=== PATIENT | male | born 1950 | race Caucasian/White ===

== ENCOUNTER 2019-07-12 00:32 | Day surgery (SDC) | payer MEDICARE, SELFPAY ==
[2019-07-04 14:55] VITALS: BMI 23.9
--- NOTE | 2019-07-11 17:11 | WPDANESEPP ---
Swethas - Evcatherine Pre Procedure Procedure: Operation Date: 07/12/19 07:30 Proposed Procedures p Colonoscopy - Jerson GirishCarlita Driscoll DO Date/Time: 07/11/19 17:11 Pre Op Diagnosis: colitis Patient Data Age: 69 Gender: M Height: 6 ft Weight: 80 kg Allergies Allergy/AdvReac Type Severity Reaction Status Date / Time No Known Allergies Allergy Unknown Verified 07/04/19 15:01 Home Medications Medication Instructions Recorded Confirmed Type finasteride 5 mg tablet 5 mg PO DAILY 04/24/19 07/04/19 History nebivolol 5 mg tablet 2.5 mg PO DAILY 04/24/19 07/04/19 History omeprazole 40 mg capsule,delayed 40 mg PO BID 04/24/19 07/04/19 History release Patient hx anesthesia problems: none Family hx anesthesia problems: none PMFSH Past Medical History Medical History Acute diverticulitis BPH without obstruction/lower urinary tract symptoms Colitis Colon polyps Essential (primary) hypertension Gastroesophageal reflux disease LLQ abdominal pain (05/14/19) Loose stools Male erectile dysfunction, unspecified Nocturia Surgical History Surgical History History of cholecystectomy Family History Family History Father Diabetes mellitus, Onset Age: 84 Cerebrovascular accident, Onset Age: 84 Family history of malignant neoplasm of esophagus Mother Hypertension Patient's mother is in good health Family history of arthritis Exam Day of Procedure 07/11/19 17:11
[2019-07-12 06:10] VITALS: BP 130/104; PULSE 92; RESP 18; TEMP 36.6; O2SAT 96
[2019-07-12] MEDS: LACTATED RINGERS 1,000 ML 150 ML IV CONT (06:48)
--- NOTE | 2019-07-12 06:56 | P.PNAN_ITS ---
Anes - Eval Final PreProcedure Day of Procedure 07/12/19 06:56 Patient weight: normal Heart: regular rate and rhythm Lungs: clear to auscultation Airway: Mallampati scale class II Neurological: alert and oriented Last oral intake: >/= 8 hours ASA classification: II Emergent: no Anesthetic plan: proceed Anesthesia type and monitoring: general GIVS and standard monitoring Informed Consent: The patient's anesthetic plan and its attendant risks and b enefits were discussed with the patient/family/POA. Questions were solicited and answers provided to the satisfaction of the patient/family/POA.
--- NOTE | 2019-07-12 07:18 | PM.IMHP ---
H&P: HPI History of Present Illness Chief complaint: colitis Narrative: Gilberto Lloyd is a 69 year old male presents for colonoscopy. Patient was found to have descending colitis on CT imaging 05/2019. He had bilateral lower abdominal cramping and frequent stooling for 1 day prior to imaging. He denies any sick contacts, fevers, chills with this episode. He had similar episode he said 1 month prior. He is back to baseline with his bowel habits. His last colonoscopy was in [address] Driscoll and had hyperplastic polyps. He has hx of GERD and is well controlled on omeprazole 40 mg daily. He denies any nausea, vomiting, dysphagia, or odynophagia. Denies abnormal weight loss, fever or chills. Family hx of esophageal cancer Had aspiration pneumonia after last colonoscopy Review of Systems Review of Systems: All systems reviewed & are unremarkable except as noted in HPI and below PMFSH Family History Family History Father Diabetes mellitus, Onset Age: 84 Cerebrovascular accident, Onset Age: 84 Family history of malignant neoplasm of esophagus Mother Hypertension Patient's mother is in good health Family history of arthritis Social History Social History (Updated 07/12/19 @ 07:19 by Maureen Carvalho, ORTHODONTIC BAND MAKER) Smoking status: Never smoker Alcohol intake: current Meds Home Medications and Allergies Home Medications Medication Instructions Recorded Confirmed Type finasteride 5 mg tablet 5 mg PO DAILY 04/24/19 07/04/19 History nebivolol 5 mg tablet 2.5 mg PO DAILY 04/24/19 07/12/19 History omeprazole 40 mg capsule,delayed 40 mg PO BID 04/24/19 07/12/19 History release Allergies Allergy/AdvReac Type Severity Reaction Status Date / Time No Known Allergies Allergy Unknown Verified 07/04/19 15:01 Vital Signs Vital Signs - 24 hr 07/12/19 06:10 Temperature 36.6 C Pulse Rate 92 Respiratory Rate 18 Blood Pressure 130/104 H Pulse Oximetry 96 Exam Const: General: cooperative, healthy appearing, comfortable, alert and awake Nutritional Appearance: average body habitus Orientation/consciousness: oriented to person, oriented to place, oriented to time and patient oriented x3 Limitations: no limitations HENMT: Head: normal to inspection and normocephalic Mouth: Yes Normal oral and palatal mucosa present and Yes moist mucous membranes Neck: Neck: normal visual inspection, supple and no JVD Carotids: no bruits Resp: Effort & Inspection: normal respiratory effort and no respiratory distress Auscultation: clear to auscultation bilaterally Cardio: Rate: regular rate Rhythm: regular rhythm Heart sounds: S1 normal heart sound present, S2 normal heart sound present, no gallops, no murmurs and no rubs GI: Inspection: normal to inspection GI Palp: No abdominal tenderness and No No hepatosplenomegaly present Percussion: Yes normal to percussion Auscultation: normal bowel sounds Rectal Exam: deferred Skin: General skin exam: normal color Lesions: no lesions Rashes: no rashes Neuro: General: oriented to person, oriented to place, oriented to time, patient oriented x3 and moves all extremities Cognition (Neuro): normal cognition Speech: normal speech Gait exam (Neuro): Normal gait present Extrem: General: normal to inspection Psych: Appearance: grossly normal Mental Status: mental status grossly normal Speech and movement: Normal speech and movement present Affect: normal affect Attitude: cooperative Thought process: Normal thought process present Assessment and Plan Assessment and plan (1) Hx of colonic polyp: Code(s): Z86.010 - Personal history of colonic polyps Status: Acute (2) Colitis: Code(s): K52.9 - Noninfective gastroenteritis and colitis, unspecified Status: Acute Assessment and Plan: Very pleasant 69 yo here to assses for any neoplasms, polyps, IBD, or colitis
[2019-07-12 08:05] VITALS: BP 86/51; PULSE 76; RESP 18; O2SAT 95
[2019-07-12 08:15] VITALS: BP 97/61; PULSE 76; RESP 18; O2SAT 95
[2019-07-12 08:25] VITALS: BP 108/75; PULSE 70; RESP 18; O2SAT 95
== END 2019-07-12 08:43 | disposition home or self-care (01) ==
PROVIDERS: PCP Family Medicine; Visit Provider Internal Medicine Gastroenterology
PROC: 0DJD8ZZ Inspection of Lower Intestinal Tract, Via Natural or Artificial Opening Endoscopic (ICD-10-PCS; CPT 45378; principal; 2019-07-12 07:30)
DX: Z09 Encounter for follow-up examination after completed treatment for conditions other than malignant neoplasm (principal); R10.32 Left lower quadrant pain; K64.8 Other hemorrhoids; K57.30 Diverticulosis of large intestine without perforation or abscess without bleeding; Z87.19 Personal history of other diseases of the digestive system; I10 Essential (primary) hypertension; K21.9 Gastro-esophageal reflux disease without esophagitis; N40.1 Benign prostatic hyperplasia with lower urinary tract symptoms; R35.1 Nocturia; N52.9 Male erectile dysfunction, unspecified
CPT/HCPCS: 45380; 88305; J2001; J2405; J2704; J7120

== ENCOUNTER 2022-07-07 20:06 | Emergency (ER) | payer MEDICARE, SELFPAY ==
--- NOTE | ~2022-07-07 | XR_ITS ---
EXAMINATION: XR knee LT 3V DATE: 07/07/2022 20:42 INDICATION: Left knee pain TECHNIQUE: Three views of the left knee were obtained. COMPARISON: None. FINDINGS: Alignment is normal. No fracture or osteochondral lesion. There is mild tricompartmental os teoarthritis characterized by tiny marginal osteophytes. No joint effusion/synovitis. Calcified athe rosclerosis is noted. IMPRESSION: 1. No acute osseous abnormality. Reviewed, dictated and finalized at location F. 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
[2022-07-07 20:15] VITALS: BP 129/85; PULSE 88; RESP 20; TEMP 36.5; O2SAT 99
[2022-07-07] MEDS: KETOROLAC 30 MG/ML VIAL (*BKC) IM (22:18)
--- NOTE | 2022-07-07 22:28 | ED.UPPEXIN ---
HPI - Extremity Injury (Upper) General Chief Complaint: Extremity Injury, Upper Stated Complaint: L knee pain Time Seen by Provider: 07/07/22 20:46 Source: patient Mode of arrival: EMS Limitations: no limitations History of Present Illness HPI narrative: Patient is a 72-year-old male who presents the ED via EMS with report of left knee pain. Patient reports he strained his left knee a few weeks ago playing ping-pong. Pain improved over time. Tonight, he was playing ping-pong again when he took a step and felt a pop in his left medial knee. He had significant pain afterwards and difficulty ambulating due to the pain. EMS was called to bring the patient here. Patient has not taken anything for pain prior to arrival. He denies any other injuries. Denies numbness, tingling. Related Data Home Medications Medication Instructions Recorded Confirmed cetirizine 10 mg tablet (Zyrtec) 10 mg PO DAILY PRN allergy symptoms 04/20/21 07/06/22 Allergies Allergy/AdvReac Type Severity Reaction Status Date / Time No Known Allergies Allergy Unknown Verified 04/22/22 13:10 Review of Systems Review of Systems: CONSTITUTIONAL: Denies fever, chills, or sweats. CARDIOVASCULAR: Denies chest pain. RESPIRATORY: Denies dyspnea. MUSCULOSKELETAL: See HPI. NEUROLOGIC: Denies tingling, numbness, or weakness. All systems reviewed & are unremarkable except as noted in HPI and below PMFSH Past Medical History Medical History Abnormal fasting glucose Actinic keratosis (~07/06/22) left posterior neck tiny crusted spot Acute diverticulitis BMI 22.0-22.9, adult BMI 23.0-23.9, adult BMI 24.0-24.9, adult BPH without obstruction/lower urinary tract symptoms Chronic neck pain Colitis Colon polyps COVID-19 (07/20/21) fully vaccinated and COVID-19 I home test Elevated PSA measurement Essential (primary) hypertension Gastroesophageal reflux disease LLQ abdominal pain (05/14/19) Male erectile dysfunction, unspecified Mixed hyperlipidemia Nocturia Patellar tendinitis of left knee (~06/23/22) Seasonal allergic rhinitis Tinea corporis Surgical History Surgical History History of cholecystectomy Hx of colonoscopy Hx of esophagogastroduodenoscopy Family History Family History Father Diabetes mellitus, Onset Age: 84 Cerebrovascular accident, Onset Age: 84 Family history of malignant neoplasm of esophagus Mother Hypertension Patient's mother is in good health Family history of arthritis Social History Social History Smoking status: Never smoker Alcohol intake: former Substance use: never Substance use type: does not use Lack of Transportation: No Lack of Food: Never True Current Housing: I Have Housing Concerned About Future Housing: No Difficulty Paying Gas/Electric Bills: No Difficulty Paying for Meds: No Currently Unemployed: No Education: Bachelor's Degree Difficulty w/ Childcare or Family Care: No Exam Narrative: GENERAL: Well appearing, well-nourished, non-toxic, in no acute distress. HEAD: Normocephalic, atraumatic. NECK: Supple. No adenopathy, no masses. RESPIRATORY: Airway patent, respirations nonlabored. CARDIOVASCULAR: Regular rate and rhythm without murmurs, rubs, or gallops. Pedal pulses 2+ and equal bilaterally. MUSCULOSKELETAL: Mild limitation of flexion range of motion of left knee due to pain. Full extension. No significant swelling noted to left anterior knee. No external tenderness to palpation throughout joint spaces of left anterior knee. Mild discomfort noted with varus stress testing and anterior drawer testing. Sensation intact. SKIN: Warm, dry, normal color. No rashes. NEURO: A&O X3. Speech clear. Cranial nerves II-XII grossly intact. No
== END 2022-07-07 22:55 | disposition home or self-care (01) ==
PROVIDERS: Emergency Provider Physician Assistant; PCP Family Medicine
DX: M23.92 Unspecified internal derangement of left knee (principal); M25.562 Pain in left knee; Z86.16 Personal history of COVID-19; I10 Essential (primary) hypertension; K21.9 Gastro-esophageal reflux disease without esophagitis
CPT/HCPCS: 73562; 96372; 99283; J1885

== ENCOUNTER → 2022-07-13 10:34 | Outpatient (CLI) | payer MEDICARE, SELFPAY ==
--- NOTE | ~2022-07-13 | MR_ITS ---
MRI of the left knee Clinical history: Injury Technique: Coronal proton density and proton density-weighted images, sagittal proton-density and T2 fat-sat images, and axial proton-density fat-saturated images were acquired. Findings: Anterior and posterior cruciate ligaments are intact. Medial collateral ligament and the la teral collateral ligament complex are intact. Popliteus tendon is intact. There is a probable radial tear at the posterior root of the medial meniscus. There is extension of t ear horizontally into the posterior horn and body versus severe intrasubstance degenerative signal. N o lateral meniscal tear seen. Articular cartilage in the medial lateral compartments is well preserved. There is patchy moderate to high-grade chondromalacia along the medial aspect of the femoral trochlea. There is moderate to high -grade chondral malacia along the medial patellar facet. No significant bone marrow signal abnormalit y seen. Extensor mechanism is intact. No significant joint effusion or Bowling's cyst. Impression: Radial tear at the posterior root of the medial meniscus. Possible extension of horizontal tear into the posterior horn and body versus severe intrasubstance degenerative signal. 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 Reviewed, dictated and finalized at [facility]. BOSS Impression: Radial tear at the posterior root of the medial meniscus. Possible extension of horizontal tear into the posterior horn and body versus severe intrasubstance degenerative signal. 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
== END ==
PROVIDERS: PCP Family Medicine; Visit Provider Orthopaedic Surgery
DX: S83.242A Other tear of medial meniscus, current injury, left knee, initial encounter (principal); X58.XXXA Exposure to other specified factors, initial encounter
CPT/HCPCS: 73721

== ENCOUNTER 2023-01-06 12:40 | Outpatient (CLI) | payer MEDICARE, SELFPAY ==
--- NOTE | 2023-01-06 13:15 | ECG_ITS ---
Measurements Intervals [place] Rate: 72 P: 44 NC: 133 QRS: 35 QRSD: 97 T: 47 QT: 372 QTc: 410 Interpretive Statements SINUS RHYTHM NORMAL ELECTROCARDIOGRAM NO PREVIOUS ECG AVAILABLE FOR COMPARISON Electronically Signed On 01-07-2023 12:49:17 CDT by Rey Tang M.D.
== END 2023-01-06 12:41 | disposition home or self-care (01) ==
LOC: ANHSURGERY 12:56
PROVIDERS: PCP Family Medicine; Visit Provider Orthopaedic Surgery
DX: Z01.810 Encounter for preprocedural cardiovascular examination (principal); I10 Essential (primary) hypertension
CPT/HCPCS: 93005

== ENCOUNTER 2023-01-11 00:24 | Day surgery (SDC) | payer MEDICARE, SELFPAY ==
[2023-01-05 09:25] VITALS: BMI 23.4
--- NOTE | 2023-01-05 09:31 | PC.NURSE ---
PRE-OP INSTRUCTIONS, PLEASE READ CAREFULLY Report to the Outpatient Waiting Room, entrance under the green pavilion located off [facility], at time _0900_ on date _01/11/23_. Planned Procedure Time: _1100_. Time changes happen often and if your time is changed the preop area will call you the afternoon before. - You and your visitor will be asked to self-screen and do not enter if you have any COVID symptoms. - A mask is optional within the hospital at this time. Patients may have clear liquids (water, carbonated beverages, clear teas, apple juice) until 3 hours prior to surgery (0800 AM) with a maximum of 20 ounces. - No food from midnight until time of surgery Take the following medications with a SIP of water the morning of surgery: _NEBIVOLOL_ DO NOT STOP ANY OF YOUR OTHER PRESCRIPTION MEDICATIONS PRIOR TO SURGERY ?EXCEPT THE FOLLOWING Medications to discontinue per physician ____NONE___, Date to take last dose Please no make-up, nail yoruba, hairspray, perfume, deodorant, or body powder the day of surgery. No jewelry (including any body piercings) or valuables the day of surgery, leave them at home. Please take a shower or bath the night before, or the morning of, surgery with an antibacterial soap. Wear comfortable, loose fitting clothing. - Jewelry must be removed prior to entering the operating room. Rings and piercings that are not removed may be cut off. - The hospital will not accept responsibility for valuables. - Please leave all valuables, including medications, at home the day of surgery. If you are going home after surgery, a licensed parts driver must drive you home. - NO public transportation without another adult if you receive anesthesia. - We recommend that an adult stay with you for 24 hours following discharge. - We also recommend that you do not drive, make important decision, drink alcoholic beverages, or take any drugs that were not prescribed by your health care provider for at least 24 hours after your discharge time. Follow any additional instructions given to you from your surgeon. If you or anyone in your household have experienced Covid symptoms in the past week, please notify your surgeon or the nurse liaison at the phone number below for possible testing. Telephone instructions given to _PATIENT_and asked if any additional questions and then verbalized understanding. Patient advised to call surgeon office or pre surgery nurse liaison [phone] if any additional questions.
[2023-01-11] VITALS (7 sets, daily range): BP systolic 126–137; BP diastolic 76–89; PULSE 69–82; RESP 10–20; TEMP 36.6–36.7; O2SAT 96–100; BMI 23.1
--- NOTE | 2023-01-11 07:24 | WPDHPUPDATE1 ---
History and Physical Update Update Date/Time: 01/11/23 07:24 History and Physical has been reviewed, including an updated exam of the patient. There are NO changes in the patient's condition. Risks, benefits, and alternatives have been discussed and questions answered. Patient agrees to proceed with procedure.
--- NOTE | 2023-01-11 08:56 | WPDANESEPPF ---
Anes - Initial Pre Proc Eval Procedure: Operation Date: 01/11/23 11:00 Proposed Procedures p Left Knee Arthroscopy - Farhad Luna MD <Johan White MD - Last Filed: 02/01/23 14:11> Date/Time: 01/11/23 08:56 <Johan White MD - Last Filed: 02/01/23 14:11> Surgeon: Farhad Luna MD <Johan White MD - Last Filed: 02/01/23 14:11> Pre Op Diagnosis: left knee medial meniscus tear <Johan White MD - Last Filed: 02/01/23 14:11> Patient Data Age: 72 Gender: M Height: 1.8 m Weight: 76.36 kg <Johan White MD - Last Filed: 02/01/23 14:11> Allergies Allergy/AdvReac Type Severity Reaction Status Date / Time No Known Allergies Allergy Unknown Verified 01/31/23 13:22 <Johan White MD - Last Filed: 02/01/23 14:11> Home Medications Medication Instructions Recorded Confirmed Type finasteride 5 mg tablet 5 mg PO DAILY #90 tabs 04/22/22 01/31/23 Rx nebivolol 10 mg tablet (Bystolic) 10 mg PO DAILY #90 tabs 04/22/22 01/31/23 Rx omeprazole 40 mg capsule,delayed 40 mg PO BID #180 caps 04/22/22 01/31/23 Rx release tadalafil 5 mg tablet (Cialis) 5 mg PO DAILY PRN Sexual Activity 01/05/23 01/31/23 History <Johan White MD - Last Filed: 02/01/23 14:11> Patient hx anesthesia problems: none <Mert Andino DO - Last Filed: 01/11/23 10:11> Family hx anesthesia problems: none <Mert Andino DO - Last Filed: 01/11/23 10:11> Results Review: All pre-operative results and documents have been reviewed as part of the pre-operative evaluation. <Johan White MD - Last Filed: 02/01/23 14:11> PMFSH Past Medical History Medical History: Medical History Abnormal fasting glucose fasting glucose 103 with hemoglobin A1c 5.6 on 04/15/2022. Actinic keratosis (~07/06/22) left posterior neck tiny crusted spot Acute diverticulitis BMI 22.0-22.9, adult BMI 23.0-23.9, adult BMI 24.0-24.9, adult BPH without obstruction/lower urinary tract symptoms Chronic neck pain Colitis Colon polyps COVID-19 (07/20/21) fully vaccinated and COVID-19 I home test Elevated PSA measurement Essential (primary) hypertension Gastroesophageal reflux disease LLQ abdominal pain (05/14/19) Male erectile dysfunction, unspecified Mixed hyperlipidemia Total cholesterol 209, triglycerides 143, HDL 34, LDL 148 with AST 18 and ALT 21 with thyroid function normal with TSH 1.77 on 04/15/2022. Nocturia Patellar tendinitis of left knee (~06/23/22) Plantar fasciitis of left foot (~08/2022) Seasonal allergic rhinitis Tinea corporis <Johan White MD - Last Filed: 02/01/23 14:11> Surgical History Surgical History: Surgical History History of cholecystectomy Hx of colonoscopy Hx of esophagogastroduodenoscopy <Johan White MD - Last Filed: 02/01/23 14:11> Family History Family History: Family History Father Diabetes mellitus, Onset Age: 84 Cerebrovascular accident, Onset Age: 84 Family history of malignant neoplasm of esophagus Mother Hypertension Patient's mother is in good health Family history of arthritis Other Arthritis <Johan White MD - Last Filed: 02/01/23 14:11> Social History Social History: Social History Smoking status: Never smoker Second hand tobacco smoke exposure: No Alcohol intake: former Alcohol use details: QUIT 2019 Substance use: never Substance use type: does not use Lack of Transportation: No Lack of Food: Never True Current Housing: I Have Housing Concerned About Future Housing: No Difficulty Paying Gas/Electric Bills: No Difficulty Paying for Meds: No Currently Unemployed: No Education: Bachelor's Degree Difficulty w/ Childcare o
[2023-01-11] MEDS: LACTATED RINGERS 1,000 ML 30 ML IV CONT ×2 (09:25→12:09)
[2023-01-11] MEDS: CELECOXIB 200 MG CAPSULE PO (09:47)
[2023-01-11] MEDS: ACETAMINOPHEN 500 MG TABLET 1000 MG PO (09:47)
[2023-01-11] MEDS: ceFAZolin 2 GM/D5W 50 ML 2 GM/50 ML BAG IVPB (10:48)
[2023-01-11] MEDS: BUPivacaine HCL 0.5% 10 ML AMP INFILTRATE (11:35)
--- NOTE | 2023-01-11 12:18 | W.PM.PROC2 ---
Procedure Note - Detailed Date of Procedure 01/11/23 Pre-op Diagnosis left knee medial meniscus tear Post-op Diagnosis Other (LEFT MEDIAL AND LATERAL MENISCUS TEAR) Procedure Performed LEFT KNEE SCOPE Surgeon Farhad Luna MD Anesthesia General Description of Procedure PATIENT WAS TAKEN TO THE OR. THE LEFT LEG WAS PREPPED AND DRAPED STERILE. TROCARS WERE PLACED IN THE USUAL FASHION. CAMERA WAS INTRODUCED. THERE WAS CHONDROMALACIA TO THE PATELLA FEMORAL JOINT. THERE WAS A LOT OF SYNOVITIS IN ALL COMPARTMENTS. THE MEDIAL COMPARTMENT SHOWED CHONDROMALACIA TO THE MEDIAL FEMORAL CONDYLE. A SHAVER WAS USED TO PREFORM A CHONDROPLASTY. JUST ANTERIOR TO THE MEDIAL FEMORAL CONDYLE THERE WAS AN AREA OF FULL THICKNESS CARTILAGE DEFECT WITH CHRONIC APPEARING CARTILAGE WEAR. THIS WAS DEBRIDED. NEXT COMPLEX MEDIAL MENISCUS TEAR WAS IDENTIFIED. THE TEAR WAS RESECTED WITH A BITER AND A SHAVER DOWN TO A SMOOTH BASE. ABOUT 10% OF THE MENISCUS WAS REMOVED. THE ACL WAS INTACT. THE LATERAL MENISCUS WAS TORN AT THE MID SECTION. THE TEAR WAS RESECTED. THE LAT COMPARTMENT HAD MINIMAL CHONDROMALACIA AT THE LATERAL PLATEAU. CHONDROPLASTY WAS PREFORMED. A SYNOVECTOMY WAS PREFORMED WELL. THE PATELLO FEMORAL JOINT UNDERWENT CHONDROPLASTY. THERE WAS GRADE 3 CHONDROMALACIA IN PART OF THE TROCHLEA AND PART OF THE PATELLA. SYNOVECTOMY WAS PREFORMED IN THE SUPERIOR MEDIAL COMPARTMENT WHICH SHOWED A LARGE PLICA BAND. THE WOUNDS WERE APPROXIMATED WITH 4.0 NYLON. STERILE DRESSING WAS APPLIED. PATIENT WAS EXTUBATED. Estimated Blood Loss 5 Complications No immediate complications Condition Stable Disposition PACU
--- NOTE | 2023-01-11 12:28 | SUR.PHASEI ---
1226: Simple mask removed.
--- NOTE | 2023-01-11 13:49 | SUR.PHASEII ---
pt meets discharge criteria and is getting dressed
== END 2023-01-11 13:53 | disposition home or self-care (01) ==
PROVIDERS: PCP Family Medicine; Visit Provider Orthopaedic Surgery
PROC: (CPT 29870; principal; 2023-01-11 11:00)
DX: S83.232A Complex tear of medial meniscus, current injury, left knee, initial encounter (principal); S83.282A Other tear of lateral meniscus, current injury, left knee, initial encounter; M22.42 Chondromalacia patellae, left knee; M65.862 Other synovitis and tenosynovitis, left lower leg; X58.XXXA Exposure to other specified factors, initial encounter; I10 Essential (primary) hypertension; K21.9 Gastro-esophageal reflux disease without esophagitis; E78.2 Mixed hyperlipidemia
CPT/HCPCS: 29880; 93005; A9270; J0690; J1100; J2250; J2405; J2704; J3010; J7120

== ENCOUNTER 2024-08-15 15:16 | Outpatient (CLI) | payer MEDICARE, SELFPAY ==
--- NOTE | ~2024-08-15 | XR_ITS ---
CHEST RADIOGRAPH, PA AND LATERAL CLINICAL HISTORY: R07.81 - Pleurodynia . COMPARISON: 03/24/2017 TECHNIQUE: PA and lateral views of the chest. FINDINGS The cardiomediastinal silhouette is unremarkable. Coarse interstitial lung markings detected bilaterally, likely chronic. The lungs are otherwise clear IMPRESSION: Coarse interstitial change, without focal infiltrate or effusion. Reviewed, dictated and finalized at location A.
== END 2024-08-15 15:17 | disposition home or self-care (01) ==
LOC: GOSHIMG 15:17
PROVIDERS: PCP Family Medicine; Visit Provider Family Medicine
DX: J84.9 Interstitial pulmonary disease, unspecified (principal); R07.81 Pleurodynia
CPT/HCPCS: 71046